=== PATIENT | female | born 1965 | race Caucasian/White ===

== ENCOUNTER 2018-04-15 13:53 | Observation (INO) ==
[~2018-04-15 13:53] MED LIST: Labetalol HCl Inj 100 MG/20 ML Vial IV.CONT ONE; Lidocaine PF 1% Inj 5 ML Syringe INFILTRATN ONE
[2018-04-15] MEDS ORDERED: Chlorhexidine Gluconate 2% 1 Pack (2 Cloths) TOPICAL SCH (14:30)
[2018-04-15] MEDS ORDERED: Metoprolol Tartrate 25 MG Tablet PO SCH (14:30)
[2018-04-15] MEDS ORDERED: Estrogens Congugated Vag Cream w/app 30 GM Tube VAGINAL ONE (14:58)
[2018-04-15] MEDS ORDERED: Sodium Chlor 0.9% Inj 500 ML IV.SIG SCH (15:00)
[2018-04-15 15:17] LABS: Baso # (Auto) 0.1 th/mm3 (0.0-0.2); Baso % (Auto) 0.9 % (0.0-2.0); Eos # (Auto) 0.3 th/mm3 (0.0-0.4); Eos % (Auto) 5.1 % (0.0-4.0); Lymph # (Auto) 1.2 th/mm3 (1.0-4.8); Lymph % (Auto) 19.4 % (9.0-44.0); Mean Corpuscular Volume 68.1 fL (80.0-100.0); Mean Platelet Volume 9.2 fL (7.0-11.0); Mono # (Auto) 0.6 th/mm3 (0.0-0.9); Mono % (Auto) 10.4 % (0.0-8.0); Neut % (Auto) 64.2 % (16.0-70.0); Platelet Count 284 th/mm3 (150-450); Red Blood Count 3.05 mil/mm3 (4.00-5.30); Red Cell Distribution Width 19.5 % (11.6-17.2); White Blood Count 6.2 th/mm3 (4.0-11.0)
[2018-04-15 15:23] LABS: Mean Corpuscular HGB Conc 29.4 % (32.0-36.0)
[2018-04-15 15:26] LABS: Hematocrit 20.8 % (35.0-46.0); Hemoglobin 6.1 gm/dL (11.6-15.3)
--- NOTE | 2018-04-15 15:30 | P.OP ---
- Preoperative Diagnosis (1) Postmenopausal bleeding (2) Submucous leiomyoma of uterus (3) Iron deficiency anemia due to chronic blood loss (4) Abnormal findings on diagnostic imaging of other specified body structures (5) Pelvic and perineal pain - Postoperative Diagnosis (1) Postmenopausal bleeding (2) Submucous leiomyoma of uterus (3) Iron deficiency anemia due to chronic blood loss (4) Abnormal findings on diagnostic imaging of other specified body structures (5) Pelvic and perineal pain Date of procedure: 04/15/18 Procedure: 1. Hysteroscopy 2. Endocervical polypectomy 3. Vaginal myomectomy 4. D&C Anesthesia: CHASIDY Surgeon: Ana Crum MD Caramel Cutter Machine: OR Staff Estimated blood loss (mL): 25 IV fluids (mL): 1,000 (+ IV antibiotics given prior to surgery) Urine output (mL): 100 Pathology: other (endocervical polyp + endometrial polyps + endometrial curettings) Operation and Findings: Description of the procedure: The risks, benefits and alternatives of the procedure were discussed with the patient. Her questions were answered. The patient signed informed consent and wished to proceed. Blood transfusion was needed due to a decreased Hgb to a value of 6. She was then taken to the operating room with her IV running. She was placed in the supine position and was given general anesthesia without difficulties or complications. IV antibiotics were given. The patient was placed in the dorsal lithotomy position and was prepped and draped in the usual sterile fashion. A bivalve speculum was introduced inside the patient's vagina. The anterior aspect of the cervix was grasped with a single tooth tenaculum for manipulation. The cervix was carefully dilated. An endometrial polyp was noted and carefully removed. A 5 mm Myosure hysteroscope was introduced inside the patient's uterus. The uterine cavity was very vascular. A large fibroid and a polypoid area were noted in the uterine cavity. The fibroid and the polyps were carefully removed with Myosure instrument. In addition, multiple biopsies were done with Myosure instrument. A careful curettage was done. The tissues were sent to pathology. All the instruments were removed from the patient's uterus. Pressure was placed at the tenaculum site for hemostasis. All the instruments were removed from the patient's vagina. She tolerated the procedure well; she was successfully awaken from general anesthesia and was transferred to PACU in stable condition. Note: I discussed the surgical findings and surgical procedures with patient's and family. Their questions were answered. They verbalized understanding and agreement to the procedures done.
[2018-04-15 15:56] LABS: Ovalocytes 1+
[2018-04-15 15:57] LABS: Acanthocytes Occ; Platelet Estimate Normal (Normal); Platelet Morphology Normal (Normal)
[2018-04-15] MEDS ORDERED: Estrogens Conjugated Inj 25 MG Vial IV.PUSH SCH (16:00)
[2018-04-15 19:15] LABS: Hematocrit 28.3 % (35.0-46.0); Hemoglobin 8.8 gm/dL (11.6-15.3)
[2018-04-15] MEDS ORDERED: Sugammadex Inj 200 MG/2 ML Vial IV.PUSH ONE ×2 (19:22→19:23)
[2018-04-15] MEDS ORDERED: fentaNYL Citrate Inj 100 MCG/2 ML Ampul ONE (19:39)
[2018-04-15] MEDS ORDERED: Zolpidem Tartrate 5 MG Tablet PO PRN (22:36)
[2018-04-15] MEDS: Estrogens Conjugated Inj 25 MG Vial IV.PUSH SCH (23:01)
[2018-04-16] MEDS: Estrogens Conjugated Inj 25 MG Vial IV.PUSH SCH ×2 (03:17→07:02)
[2018-04-16 06:37] LABS: Baso % (Auto) 0.3 % (0.0-2.0); Hematocrit 27.9 % (35.0-46.0); Hemoglobin 8.9 gm/dL (11.6-15.3); Lymph # (Auto) 0.9 th/mm3 (1.0-4.8); Lymph % (Auto) 8.5 % (9.0-44.0); Mean Corpuscular HGB Conc 31.9 % (32.0-36.0); Mean Corpuscular Hemoglobin 22.5 pg (27.0-34.0); Mean Corpuscular Volume 70.4 fL (80.0-100.0); Mean Platelet Volume 8.8 fL (7.0-11.0); Mono # (Auto) 0.5 th/mm3 (0.0-0.9); Mono % (Auto) 4.6 % (0.0-8.0); Neut # (Auto) 9.6 th/mm3 (1.8-7.7); Neut % (Auto) 86.6 % (16.0-70.0); Platelet Count 333 th/mm3 (150-450); Red Blood Count 3.97 mil/mm3 (4.00-5.30); Red Cell Distribution Width 20.4 % (11.6-17.2); White Blood Count 11.1 th/mm3 (4.0-11.0)
[2018-04-16 06:53] LABS: Alanine Aminotransferase 26 U/L (10-53); Albumin 3.4 g/dL (3.4-5.0); Anion Gap 6 meq/L (5-15); Aspartate Aminotransferase 13 U/L (15-37); Blood Urea Nitrogen 7 mg/dL (7-18); Calcium 8.2 mg/dL (8.5-10.1); Carbon Dioxide 25.2 meq/L (21.0-32.0); Chloride 109 meq/L (98-107); Glomerular Filtration Rate 78 mL/min (>89); Glucose,Random 147 mg/dL (74-106); Sodium 140 meq/L (136-145)
[2018-04-16 06:55] LABS: Alkaline Phosphatase 72 U/L (45-117); Total Protein 7.3 g/dL (6.4-8.2)
[2018-04-16] MEDS ORDERED: Ferrous Sulfate 325 MG Tablet PO SCH (09:00)
--- NOTE | 2018-04-16 09:21 | P.PNOB ---
Assessment and Plan (1) Iron deficiency anemia due to chronic blood loss Status: Acute Assessment and plan: 1. patient is stable, feeling better 2. reviewed op findings and need for treatment of anemia 3. has appointment scheduled for post op in the office 4. answered patient's questions; she verbalized understanding - Postoperative Procedures Operation Date: 04/15/18 18:39 Actual Procedures Side Surgeon p Hysteroscopy, D&C, Myomectomy, Myosure Ana Crum MD Postoperative status: doing well, anemia Postoperative plan: routine post-op care, discharge - Time Spent With Patient Total time spent is greater than 50% in coordination of care (as documented) at patient's floor/unit and/or counseling patient: 25 - 35 minutes Subjective Interval history: patient needed blood transfusion prior to surgery; she was kept overnight for observation due to severe anemia Subjective: patient reports feeling better, patient has no complaints, patient desires discharge, pain is well controlled Physical Exam Vital signs: Temp Pulse Resp BP Pulse Ox 97.7 F 52 L 18 121/74 100 04/16/18 08:30 04/16/18 08:30 04/16/18 08:30 04/16/18 08:30 04/16/18 08:30 - Constitutional no acute distress, obese - Routine Abdominal Exam Present: soft, normoactive bowel sounds - Urinary Catheter Management Straight Cath placed during this visit: yes Urethral indwelling: No Insertion date: 04/15/18 Insertion time: 18:50 Results - Labs CBC & Chem 7: 04/16/18 06:20 04/16/18 06:20 Labs: Laboratory Results - last 24 hr 04/15/18 04/15/18 04/15/18 14:55 14:55 15:39 WBC 6.2 RBC 3.05 L Hgb 6.1 L* Hct 20.8 L* MCV 68.1 L MCH 20.0 L MCHC 29.4 L RDW 19.5 H Plt Count 284 MPV 9.2 Prelim Diff (Auto) Slide review pending Neut % (Auto) 64.2 Lymph % (Auto) 19.4 [place] % (Auto) 10.4 H Eos % (Auto) 5.1 H Baso % (Auto) 0.9 Neut # (Auto) 4.0 Lymph # (Auto) 1.2 [place] # (Auto) 0.6 Eos # (Auto) 0.3 Baso # (Auto) 0.1 WBC Differential . Diff Scan Auto diff confirmed Differential Comment . Platelet Estimate Normal Platelet Morphology Normal Ovalocytes 1+ H Acanthocytes (Spur) Occ H Sodium Potassium Chloride Carbon Dioxide Anion Gap BUN Creatinine Estimated GFR Random Glucose Calcium Total Bilirubin AST ALT Alkaline Phosphatase Total Protein Albumin Blood Type AB Positive Blood Type Recheck Antibody Screen Negative MTS Gel Crossmatch See Detail Bld Prod Order Comment 04/15/18 04/16/18 04/16/18 19:00 06:20 06:20 WBC 11.1 H D RBC 3.97 L Hgb 8.8 L D 8.9 L Hct 28.3 L 27.9 L MCV 70.4 L MCH 22.5 L MCHC 31.9 L RDW 20.4 H Plt Count 333 MPV 8.8 Prelim Diff (Auto) Neut % (Auto) 86.6 H Lymph % (Auto) 8.5 L [place] % (Auto) 4.6 Eos % (Auto) 0.0 Baso % (Auto) 0.3 Neut # (Auto) 9.6 H Lymph # (Auto) 0.9 L [place] # (Auto) 0.5 Eos # (Auto) 0.0 Baso # (Auto) 0.0 WBC Differential . Diff Scan Differential Comment Auto diff final Platelet Estimate Platelet Morphology Ovalocytes Acanthocytes (Spur) Sodium 140 Potassium 4.0 Chloride 109 H Carbon Dioxide 25.2 Anion Gap 6 BUN 7 Creatinine 0.78 Estimated GFR 78 L Random Glucose 147 H Calcium 8.2 L Total Bilirubin 0.4 AST 13 L ALT 26 Alkaline Phosphatase 72 Total Protein 7.3 Albumin 3.4 Blood Type Blood Type Recheck Antibody Screen MTS Gel Crossmatch Bld Prod Order Comment
--- NOTE | 2018-04-16 14:08 | ECG ---
Date Performed: 04/15/2018 Time Performed: 14:48:04 PTAGE: 52 years EKG: Sinus rhythm NORMAL ECG NO PREVIOUS TRACING DOCTOR: Roe Caputo Interpretating Date/Time 04/16/2018 14:07:07
== END 2018-04-16 11:01 | disposition home or self-care (01) ==
LOC: H1EA 13:53 → HSDI 13:53 → HOR 13:53 → H1EA 20:35
PROVIDERS: ADMIT Obstetrics & Gynecology; ATTEND Obstetrics & Gynecology
PROC: [UNRECOGNIZED PROCEDURE] (2018-04-15 18:39)